=== PATIENT | male | born 1990 | race Caucasian/White ===

== ENCOUNTER 2017-12-04 16:09 | Emergency (ER) | payer OTHER | END 2017-12-04 17:04 | disposition left against medical advice (07) | LOC: ER 16:09 | DX: Z53.21 Procedure and treatment not carried out due to patient leaving prior to being seen by health care provider (principal); R51 Headache ==

== ENCOUNTER 2019-08-24 12:42 | Emergency (ER) | payer OTHER ==
[2019-08-24] MEDS ORDERED: NORMAL SALINE 1000 ML 1,000 ML IV ONE (13:22)
--- NOTE | 2019-08-24 13:23 | ER Document Report ---
ED Syncope and Near Syncope - General Chief Complaint: Passed Out Prior to Arrival Stated Complaint: SYNCOPE Time Seen by Provider: 08/24/19 13:08 Primary Care Provider: [facility] [Provider Group] - Follow up as needed [facility] [Provider Group] - Follow up as needed YVETTE PETERSON MD [ACTIVE STAFF] - Follow up tomorrow Mode of Arrival: Medic Information source: Patient Notes: Patient reports that it was his birthday and so he started drinking very early today. Patient states that he drank about a pint of liquor this morning. Patient states he did not eat anything yesterday. Patient states that he passed out in a recliner while watching TV and his friend thought that he was choking on his emesis or spit because he thought he was breathing differently. Patient states that he pulled him into the shower and that he woke up on the floor. Patient denies any nausea or vomiting. Patient states that he has no complaints at this time. Patient reports that he feels the effects of the alcohol he drank but otherwise has no other symptoms. Patient smokes but denies any substance abuse. TRAVEL OUTSIDE OF THE [place] IN LAST 30 DAYS: No - HPI Episode witnessed (by whom): Yes Symptoms prior to episode: None Position/Activity at time of episode: Sitting Quality of pain: No pain Context: Lost consciousness. denies: Recent seizures Current symptoms: denies: Chest pain, Headache, Lightheaded, Nausea, Vomiting Similar symptoms previously: No Recently seen / treated by doctor: No - Related Data Allergies/Adverse Reactions: No Known Allergies Allergy (Verified 12/04/17 16:10) Past Medical History - General Information source: Patient - Social History Smoking Status: Current Some Day Smoker Frequency of alcohol use: Social Drug Abuse: None Occupation: None Family History: Reviewed & Not Pertinent Patient has homicidal ideation: No - Medical History Medical History: Negative Past Surgical History: Reports: Hx Adenoidectomy, Hx Tonsillectomy Review of Systems - Review of Systems Constitutional: No symptoms reported. denies: Fever, Recent illness EENT: No symptoms reported Cardiovascular: Syncope. denies: Chest pain Respiratory: No symptoms reported. denies: Cough, Short of breath Gastrointestinal: No symptoms reported. denies: Abdominal pain, Nausea, Vomiting Genitourinary: No symptoms reported Male Genitourinary: No symptoms reported Musculoskeletal: No symptoms reported. denies: Back pain Skin: No symptoms reported Hematologic/Lymphatic: No symptoms reported Neurological/Psychological: No symptoms reported Physical Exam - Vital signs Vitals: Temp Resp BP Pulse Ox 98.1 F 21 H 130/89 H 96 08/24/19 12:54 08/24/19 12:54 08/24/19 12:54 08/24/19 12:54 - General General appearance: Appears well, Alert In distress: None - HEENT Head: Normocephalic, Atraumatic Eyes: Normal Conjunctiva: Normal Nasal: Normal Mouth/Lips: Normal Mucous membranes: Normal Pharynx: Normal Neck: Normal, Supple. No: Lymphadenopathy - Respiratory Respiratory status: No respiratory distress Chest status: Nontender Breath sounds: Normal. No: Rales, Rhonchi, Stridor, Wheezing Chest palpation: Normal - Cardiovascular Rhythm: Tachycardia Heart sounds: S1 appreciated, S2 appreciated - Abdominal Inspection: Normal Distension: No distension Bowel sounds: Normal Tenderness: Nontender Organomegaly: No organomegaly - Back Back: Normal, Nontender - Extremities General upper extremity: Normal inspection, Normal ROM General lower extremity: Normal inspection, Normal ROM - Neurological Neuro grossly intact: Yes Cognition: Normal [place] Coma Scale Eye Opening: Spontaneous [place] Coma Scale Verbal: Oriented [place] Coma Scale Motor: Obeys Commands [place] Coma Scale Total: 15 - Psychological Associated symptoms: Normal affect, Normal mood - Skin Skin Temperature: Warm Skin Moisture: Dry Skin Color: Normal Course - Re-evaluation Re-evalutation: 08/24/19 15:40 supervisor framing mill states that patient actually presented after his friend perform CPR that at home. Provider informed charge nurse that this is the first time that this provider has not heard about this information. Spoke with patient again w brittany confirmed that yes he did have CPR at home and hadsome mild chest tenderness. 08/24/19 15:[address] Dacosta regarding patient presentation and diagnostic evaluation. Agrees with plan to repeat EKG at this time. 08/24/19 16:42 Consulted with residence leasing agent Dr. Peterson regarding patient's presentation. Patient's repeat EKG demonstrates that again he still is in A. fib at this time. Dr. Peterson states that patient by history it sounds as though he may have holiday heart syndrome which can be an alcohol induced A. fib. Dr. Peterson states that patient may need to follow-up in the office for cardioversion if things persist. Suspect likely resolution of symptoms once alcohol has left his system. 08/24/19 16:[address] Dacosta who agrees with discharge plan of care at this time. Patient will be given number for residence leasing agent to follow-up with and encouraged to avoid alcohol use. Patient is clinically sober at this time answering all questions appropriately, no concern about airway compromise. Patient encouraged to return immediately for any new or worsening symptoms. - Vital Signs Vital signs: Temp Pulse Resp BP Pulse Ox 98.1 F 11 L 118/84 99 08/24/19 13:01 08/24/19 16:01 08/24/19 16:01 08/24/19 16:01 - Laboratory Result Diagrams: 08/24/19 13:35 08/24/19 13:35 Laboratory results interpreted by me: 08/24/19 08/24/19 13:35 14:20 AST 278 H ALT 151 H Urine Protein 30 H Urine Blood SMALL H - Diagnostic Test Radiology reviewed: Reports reviewed - EKG Interpretation by Me Rhythm: A.Fib Additional EKG results interpreted by me: 08/24/19 16:53 Patient with A. fib, rate of 105, QTc 445. No acute ischemic changes Discharge - Discharge Clinical Impression: Alcohol abuse, Opiate abuse, episodic Syncope Qualifiers: Syncope type: unspecified Qualified Code(s): R55 - Syncope and collapse Atrial fibrillation Qualifiers: Atrial fibrillation type: unspecified Qualified Code(s): I48.91 - Unspecified atrial fibrillation Condition: Stable Disposition: HOME, SELF-CARE Instructions: Acute Alcohol Intoxication ([facility]), Atrial Fibrillation ([facility]) Additional Instructions: Return immediately for any new or worsening symptoms Followup with your primary care provider, call tomorrow to make a followup appointment Your heart is in an abnormal rhythm that can be induced by alcohol use. You should refrain from using alcohol. Follow-up with the residence leasing agent for further evaluation. Call tomorrow to make a follow-up appointment. They may need to do a procedure such as a cardioversion to correct your heart arrhythmia. Return immediately for any chest pain, shortness of breath, lightheadedness, dizziness or any concerning new symptoms. Referrals: YVETTE PETERSON MD [ACTIVE STAFF] - Follow up tomorrow [facility] [Provider Group] - Follow up as needed [facility] [Provider Group] - Follow up as needed
--- NOTE | 2019-08-24 14:13 | RADIOLOGY REPORT (SQ) ---
EXAM DESCRIPTION: CHEST SINGLE VIEW IMAGES COMPLETED DATE/TIME: 08/24/2019 1:42 pm REASON FOR STUDY: syncope COMPARISON: None. NUMBER OF VIEWS: One view. TECHNIQUE: Single frontal radiographic view of the chest acquired. LIMITATIONS: None. FINDINGS: LUNGS AND PLEURA: No opacities, masses or pneumothorax. No pleural effusion. MEDIASTINUM AND HILAR STRUCTURES: No masses. Contour normal. HEART AND VASCULAR STRUCTURES: Heart normal in size. Normal vasculature. BONES: No acute findings. HARDWARE: None in the chest. OTHER: No other significant finding. IMPRESSION: NO SIGNIFICANT RADIOGRAPHIC FINDING IN THE CHEST. TECHNICAL DOCUMENTATION: JOB ID: [id number] [employer]- All Rights Reserved Reading location - IP/workstation name: [email or web address]
[2019-08-24 14:39] LABS: ABSOLUTE EOSINOPHILS # (AUTO) 0.1 10^3/uL (0.0-0.6); ABSOLUTE MONOCYTES (AUTO) 0.6 10^3/uL (0.1-1.4); HEMOGLOBIN 14.8 g/dL (13.5-17.0); MONOCYTES % (AUTO) 9.2 % (3-13); TOTAL CELLS COUNTED % (AUTO) 100 %
[2019-08-24 14:46] LABS: APPEARANCE,URINE CLEAR; BILIRUBIN,URINE NEGATIVE (NEGATIVE); COLOR,URINE STRAW; GLUCOSE, URINE NEGATIVE (NEGATIVE); KETONES,URINE NEGATIVE (NEGATIVE); LEUKOCYTE ESTERASE,URINE NEGATIVE (NEGATIVE); NITRITE,URINE NEGATIVE (NEGATIVE); PROTEIN,URINE 30 mg/dL (NEGATIVE); URINE SPECIFIC GRAVITY 1.005; UROBILINOGEN,URINE NEGATIVE mg/dL (<2.0)
[2019-08-24 14:46] LABS: ABSOLUTE NEUT (AUTO) 4.5 10^3/uL (1.7-8.2); BASOPHILS % (AUTO) 0.6 % (0-2); EOSINOPHILS % (AUTO) 1.9 % (0-6); HEMATOCRIT 42.6 % (37.9-51.0); LYMPHOCYTES % (AUTO) 16.5 % (13-45); MEAN CORPUSCULAR HEMOGLOBIN 33.2 pg (27.0-33.4); MEAN CORPUSCULAR HGB CONC 34.7 g/dL (32.0-36.0); MEAN CORPUSCULAR VOLUME 96 fl (80-97); PLATELET COUNT 159 10^3/uL (150-450); RED BLOOD COUNT 4.47 10^6/uL (4.35-5.55); SEGMENTED NEUTROPHILS % (AUTO) 71.8 % (42-78); WHITE BLOOD COUNT 6.3 10^3/uL (4.0-10.5)
[2019-08-24 14:55] LABS: ADD MANUAL MICROSCOPIC YES
[2019-08-24 14:56] LABS: WBC,URINE NONE SEEN /HPF
[2019-08-24 14:59] LABS: URINE AMPHETAMINES SCREEN NEGATIVE; URINE BARBITURATES SCREEN NEGATIVE; URINE BENZODIAZEPINES SCREEN NEGATIVE; URINE COCAINE SCREEN NEGATIVE; URINE MARIJUANA (THC) SCREEN NEGATIVE; URINE METHADONE SCREEN NEGATIVE; URINE PHENCYCLIDINE SCREEN NEGATIVE
[2019-08-24 15:00] LABS: ALBUMIN 4.2 g/dL (3.5-5.0); ALCOHOL 257 mg/dL (NONE DETECTED); ALKALINE PHOSPHATASE 94 U/L (38-126); ANION GAP 9 (5-19); ASPARTATE AMINO TRANSFERASE 278 U/L (17-59); BILIRUBIN,TOTAL 0.5 mg/dL (0.2-1.3); BLOOD UREA NITROGEN 12 mg/dL (7-20); CALCIUM 8.5 mg/dL (8.4-10.2); CARBON DIOXIDE 26 mmol/L (22-30); CHLORIDE 104 mmol/L (98-107); GLUCOSE 96 mg/dL (75-110); TOTAL PROTEIN 6.7 g/dL (6.3-8.2)
[2019-08-24 16:57] VITALS: BP 118/84
--- NOTE | 2019-08-24 20:33 | EKG REPORT ---
SEVERITY:- ABNORMAL ECG - ATRIAL FIBRILLATION, V-RATE 63-104 : Confirmed by: Lauren Gordon MD 24-Aug-2019 20:33:05
--- NOTE | 2019-08-24 20:34 | EKG REPORT ---
SEVERITY:- ABNORMAL ECG - ATRIAL FIBRILLATION, V-RATE 80-124 : Confirmed by: Lauren Gordon MD 24-Aug-2019 20:33:25
== END 2019-08-24 17:06 | disposition home or self-care (01) ==
LOC: ER 12:42
DX: F10.10 Alcohol abuse, uncomplicated (principal); F11.10 Opioid abuse, uncomplicated; I48.91 Unspecified atrial fibrillation; R55 Syncope and collapse; F17.200 Nicotine dependence, unspecified, uncomplicated
CPT/HCPCS: 96360; 93005; 99284; 36415; 80307 ×2; 83735; 85025; 80053; 81001; 71045; 93010; J7030